=== PATIENT | female | born 1990 | race Caucasian/White ===

== ENCOUNTER 2017-08-15 23:29 | Emergency (ER) | payer OTHER ==
[~2017-08-15] VITALS: Ht 160 cm; Wt 64.9 kg
[2017-08-15 23:59] VITALS: Ht 160 cm; Wt 64.9 kg
[2017-08-16 01:25] VITALS: BP 118/84
== END 2017-08-16 01:25 | disposition home or self-care (01) ==
LOC: ED 23:29
DX: F41.9 Anxiety disorder, unspecified (principal); Z86.59 Personal history of other mental and behavioral disorders; F32.9 Major depressive disorder, single episode, unspecified